=== PATIENT | female | born 1965 | race Caucasian/White ===

== ENCOUNTER 2020-12-10 12:49 | Emergency (ER) | payer OTHER ==
[~2020-12-10] VITALS: Ht 157.5 cm; Wt 40.8 kg
== END 2020-12-10 13:13 | disposition home or self-care (01) ==
LOC: ER 13:07
DX: L03.113 Cellulitis of right upper limb (principal); Z87.891 Personal history of nicotine dependence
CPT/HCPCS: 99283

== ENCOUNTER 2022-03-14 03:06 | Emergency (ER) | payer OTHER ==
[~2022-03-14] VITALS: Ht 157.5 cm; Wt 43.1 kg
[2022-03-14] MEDS ORDERED: ALBUTEROL/IPRATROPIUM 3 ML NEB NEB ONE (03:15)
[2022-03-14] MEDS ORDERED: METHYLPREDNISOLONE SOD SUCC 125 MG/2ML VIAL IM ONE (03:15)
== END 2022-03-14 04:07 | disposition home or self-care (01) ==
LOC: ER 03:09
DX: R05.9 Cough, unspecified (principal); J18.9 Pneumonia, unspecified organism; J98.01 Acute bronchospasm; R06.02 Shortness of breath; Z20.822 Contact with and (suspected) exposure to COVID-19; R94.31 Abnormal electrocardiogram [ECG] [EKG]
CPT/HCPCS: 71045; 93005; 94799; 99283; J2930; U0002

== ENCOUNTER 2022-03-16 14:37 | Inpatient (IN) | payer OTHER ==
[~2022-03-16] VITALS: Ht 157.5 cm; Wt 43.1 kg
[2022-03-16 15:26] LABS: BASOPHILS # (AUTO) 0.2 (0.0-0.1); BASOPHILS % 0.8 % (0.0-1.0); HEMATOCRIT 35.6 % (34.2-44.1); HEMOGLOBIN 11.4 g/dL (12.0-16.0); LYMPHOCYTES # (AUTO) 1.5 (1.0-3.2); LYMPHOCYTES % 6.6 % (18.0-39.1); MEAN CORPUSCULAR HEMOGLOBIN 23.7 pg (28-32); MEAN CORPUSCULAR VOLUME 73.9 fL (81-99); MONOCYTES # (AUTO) 1.7 (0.2-0.8); MONOCYTES % 7.1 % (4.4-11.3); NEUTROPHILS # (AUTO) 17.7 (2.1-6.9); NEUTROPHILS % 75.4 % (38.7-80.0); PLATELET COUNT 604 x10e3/uL (140-360); RED BLOOD COUNT 4.82 x10e6/uL (3.6-5.1); RED CELL DISTRIBUTION WIDTH 17.9 % (11.7-14.4)
[2022-03-16 15:47] LABS: ALBUMIN 1.7 g/dL (3.5-5.0); ALBUMIN/GLOBULIN RATIO 0.3 (0.8-2.0); ANION GAP 14.3 mmol/L (8-16); CALCIUM 7.9 mg/dL (8.4-10.2); CREATININE, SERUM 0.5 mg/dL (0.57-1.11); POTASSIUM 4.3 mmol/L (3.5-5.1)
[2022-03-16] MEDS ORDERED: KETOROLAC TROMETHAMINE 30 MG/ML VIAL IV ONE (16:10)
[2022-03-16 16:16] LABS: LYMPHOCYTES % (MANUAL) 5 % (19-48); METAMYELOCYTES % (MANUAL) 3 % (0-0); MONOCYTES % (MANUAL) 5 % (3.4-9.0); MYELOCYTES % (MANUAL) 2 % (0-0); NEUTROPHILS % (MANUAL) 84 % (40-74); PLATELET ESTIMATE MODERATELY INCREASED; PLATELET MORPHOLOGY COMMENT MODERATE LARGE; RBC MORPHOLOGY COMMENT NORMAL
[2022-03-16] MEDS ORDERED: IOPAMIDOL 370 MG/ML 100 ML INFUS..BTL INJ ONE (16:31)
[2022-03-16] MEDS ORDERED: ASPIRIN 81 MG CHEW TAB PO ONE (17:00)
[2022-03-16] MEDS: SODIUM CHLORIDE 0.9% 1000ML 1,000 ML IV SCH (17:00)
[2022-03-16] MEDS ORDERED: SODIUM CHLORIDE 0.9% 1000ML 1,000 ML IV SCH (17:00)
[2022-03-16 17:48] VITALS: BP 150/84
[2022-03-16 17:55] VITALS: BP 152/112
[2022-03-16] MEDS ORDERED: HYDRALAZINE HCL 20 MG/ML VIAL IV PRN (18:30)
[2022-03-16] MEDS ORDERED: POLYETHYLENE GLYCOL 3350 17 GM PACK PO PRN (18:30)
[2022-03-16] MEDS ORDERED: ACETAMINOPHEN 325 MG TAB PO PRN (18:30)
[2022-03-16] MEDS ORDERED: ONDANSETRON HCL INJ 2MG/ML 2ML 2 MG/ML VIAL IV PRN (18:30)
[2022-03-16] MEDS ORDERED: KETOROLAC TROMETHAMINE 10 MG TAB PO PRN (19:00)
[2022-03-16] MEDS ORDERED: MELATONIN 3 MG TAB PO PRN (19:00)
[2022-03-16 20:00] VITALS: BP 101/84
[2022-03-16] MEDS: ENOXAPARIN SOD INJ 60 MG/0.6 ML SYR SC SCH (20:36)
[2022-03-16] MEDS: TEMAZEPAM 7.5 MG CAP PO PRN (21:40)
[2022-03-16] MEDS: ACETAMINOPHEN/CODEINE 300MG - 30MG TAB PO PRN (21:40)
[2022-03-16 22:18] LABS: AMPHETAMINES SCREEN,URINE NEGATIVE (NEGATIVE); BENZODIAZEPINES SCREEN,URINE NEGATIVE (NEGATIVE); PHENCYCLIDINE SCREEN,URINE NEGATIVE (NEGATIVE)
[2022-03-16 22:20] LABS: CLARITY,URINE CLOUDY (CLEAR); COLOR,URINE YELLOW (YELLOW); LEUKOCYTE ESTERASE ,URINE NEGATIVE (NEGATIVE); NITRITE,URINE NEGATIVE (NEGATIVE)
[2022-03-16 22:21] LABS: KETONES,URINE NEGATIVE (NEGATIVE); PROTEIN,URINE DIPSTICK NEGATIVE (NEGATIVE); URINE UROBILINOGEN 0.2 mg/dL (0.2 - 1)
[2022-03-16 22:31] LABS: BACTERIA,URINE MANY /HPF; EPITHELIAL CELLS,URINE MODERATE /LPF; HYALINE CASTS 0-1 (0-1); TRICHOMONAS,URINE FEW
[2022-03-17] VITALS (7 sets, daily range): BP systolic 93–139; BP diastolic 54–93
[2022-03-17] MEDS: SODIUM CHLORIDE 0.9% 1000ML 1,000 ML IV SCH ×3 (01:15→17:10)
[2022-03-17] MEDS ORDERED: FAMOTIDINE 20 MG/2 ML VIAL IV STA (05:34)
[2022-03-17] MEDS: FAMOTIDINE 20 MG TAB PO SCH ×2 (05:36→17:10)
[2022-03-17] MEDS ORDERED: METOCLOPRAMIDE HCL 10 MG/2ML VIAL IV ONE (05:45)
[2022-03-17 06:44] LABS: BASOPHILS # (AUTO) 0.2 (0.0-0.1); BASOPHILS % 0.7 % (0.0-1.0); EOSINOPHILS # (AUTO) 0.1 (0.0-0.4); EOSINOPHILS % 0.2 % (0.0-6.0); HEMATOCRIT 35.6 % (34.2-44.1); HEMOGLOBIN 11.2 g/dL (12.0-16.0); LYMPHOCYTES # (AUTO) 2.8 (1.0-3.2); LYMPHOCYTES % 12.4 % (18.0-39.1); MEAN CORPUSCULAR HEMOGLOBIN 23.2 pg (28-32); MEAN CORPUSCULAR HGB CONC 31.5 g/dL (31-35); MEAN CORPUSCULAR VOLUME 73.7 fL (81-99); MONOCYTES # (AUTO) 1.5 (0.2-0.8); MONOCYTES % 6.8 % (4.4-11.3); NEUTROPHILS # (AUTO) 15.8 (2.1-6.9); NEUTROPHILS % 69.9 % (38.7-80.0); PLATELET COUNT 474 x10e3/uL (140-360); RED BLOOD COUNT 4.83 x10e6/uL (3.6-5.1); RED CELL DISTRIBUTION WIDTH 17.8 % (11.7-14.4)
[2022-03-17 07:39] LABS: CALCIUM 8.2 mg/dL (8.4-10.2); CREATININE, SERUM 0.48 mg/dL (0.57-1.11)
[2022-03-17 08:13] LABS: CREATINE KINASE < 7 IU/L (29-168)
[2022-03-17] MEDS: ENOXAPARIN SOD INJ 60 MG/0.6 ML SYR SC SCH ×2 (08:20→20:16)
[2022-03-17 08:38] LABS: CHOL/HDL RATIO 10.3 (3.0-3.6); MAGNESIUM 1.5 MG/DL (1.3-2.1); PHOSPHORUS 2.8 MG/DL (2.3-4.7)
[2022-03-17] MEDS ORDERED: MAGNESIUM SULFATE 2GM/50ML 50 ML IV ONE ×2 (08:45→13:30)
[2022-03-17 08:59] LABS: THYROID STIMULATING HORMONE 2.769 uIU/mL (0.350-4.940)
[2022-03-17] MEDS: DOCUSATE SODIUM 100 MG CAP PO SCH ×2 (09:15→17:00)
[2022-03-17 10:41] LABS: BAND NEUTROPHILS % (MANUAL) 1 %; EOSINOPHILS % (MANUAL) 1 % (0-7); LYMPHOCYTES % (MANUAL) 7 % (19-48); METAMYELOCYTES % (MANUAL) 2 % (0-0); MONOCYTES % (MANUAL) 8 % (3.4-9.0); MYELOCYTES % (MANUAL) 3 % (0-0); NEUTROPHILS % (MANUAL) 78 % (40-74); PLATELET ESTIMATE ADEQUATE
[2022-03-17 10:42] LABS: PLATELET MORPHOLOGY COMMENT NORMAL; RBC MORPHOLOGY COMMENT NORMAL
[2022-03-17] MEDS ORDERED: ALBUTEROL SULFATE HFA 8GM INHALATION AEROSOL INH PRN (12:45)
[2022-03-17] MEDS: HYDROCODONE/APAP 7.5MG-325MG 1 EA TAB PO PRN (14:00)
[2022-03-17 14:07] LABS: CREATINE KINASE < 7 IU/L (29-168)
[2022-03-17] MEDS: TEMAZEPAM 7.5 MG CAP PO PRN (20:16)
[2022-03-18] VITALS: BP 119/57
[2022-03-18] MEDS: SODIUM CHLORIDE 0.9% 1000ML 1,000 ML IV SCH ×2 (00:38→10:00)
[2022-03-18 04:00] VITALS: BP 135/72
[2022-03-18 05:33] LABS: BASOPHILS # (AUTO) 0.1 (0.0-0.1); BASOPHILS % 0.4 % (0.0-1.0); EOSINOPHILS # (AUTO) 0.1 (0.0-0.4); EOSINOPHILS % 0.3 % (0.0-6.0); HEMATOCRIT 33.2 % (34.2-44.1); HEMOGLOBIN 10.6 g/dL (12.0-16.0); LYMPHOCYTES # (AUTO) 2.7 (1.0-3.2); LYMPHOCYTES % 9.9 % (18.0-39.1); MEAN CORPUSCULAR HEMOGLOBIN 23.6 pg (28-32); MEAN CORPUSCULAR HGB CONC 31.9 g/dL (31-35); MEAN CORPUSCULAR VOLUME 73.8 fL (81-99); MONOCYTES # (AUTO) 2.1 (0.2-0.8); MONOCYTES % 7.8 % (4.4-11.3); NEUTROPHILS # (AUTO) 19.8 (2.1-6.9); NEUTROPHILS % 73.2 % (38.7-80.0); PLATELET COUNT 433 x10e3/uL (140-360); RED CELL DISTRIBUTION WIDTH 17.8 % (11.7-14.4)
[2022-03-18 05:57] LABS: ALBUMIN 1.7 g/dL (3.5-5.0); ALBUMIN/GLOBULIN RATIO 0.4 (0.8-2.0); ANION GAP 12.2 mmol/L (8-16); CALCIUM 7.5 mg/dL (8.4-10.2); CREATININE, SERUM 0.45 mg/dL (0.57-1.11); POTASSIUM 4.2 mmol/L (3.5-5.1)
[2022-03-18] MEDS: FAMOTIDINE 20 MG TAB PO SCH ×2 (06:13→17:00)
[2022-03-18 06:24] LABS: CREATINE KINASE < 7 IU/L (29-168)
[2022-03-18] MEDS: HYDROCODONE/APAP 7.5MG-325MG 1 EA TAB PO PRN ×3 (06:26→18:35)
[2022-03-18 08:24] VITALS: BP 135/71
[2022-03-18] MEDS: DOCUSATE SODIUM 100 MG CAP PO SCH ×2 (09:00→17:00)
[2022-03-18] MEDS: ENOXAPARIN SOD INJ 60 MG/0.6 ML SYR SC SCH ×2 (09:30→20:17)
[2022-03-18 09:33] LABS: BAND NEUTROPHILS % (MANUAL) 2 %; LYMPHOCYTES % (MANUAL) 10 % (19-48); METAMYELOCYTES % (MANUAL) 3 % (0-0); MONOCYTES % (MANUAL) 7 % (3.4-9.0); MYELOCYTES % (MANUAL) 1 % (0-0); NEUTROPHILS % (MANUAL) 77 % (40-74)
[2022-03-18 09:34] LABS: ANISOCYTOSIS MODERATE; HYPOCHROMASIA MODERATE; MICROCYTOSIS MODERATE; PLATELET ESTIMATE ADEQUATE; PLATELET MORPHOLOGY COMMENT NORMAL; RBC MORPHOLOGY COMMENT ABNORMAL
[2022-03-18] MEDS: CLOPIDOGREL BISULFATE 75 MG TAB PO SCH (09:45)
[2022-03-18] MEDS: ACETAMINOPHEN/CODEINE 300MG - 30MG TAB PO PRN ×2 (09:50→16:45)
[2022-03-18 20:00] VITALS: BP 100/61
[2022-03-18 20:45] VITALS: BP 100/61
[2022-03-19] VITALS (9 sets, daily range): BP systolic 84–126; BP diastolic 56–94
[2022-03-19 05:00] LABS: BASOPHILS # (AUTO) 0.1 (0.0-0.1); BASOPHILS % 0.3 % (0.0-1.0); EOSINOPHILS # (AUTO) 0.1 (0.0-0.4); EOSINOPHILS % 0.5 % (0.0-6.0); HEMATOCRIT 30.3 % (34.2-44.1); HEMOGLOBIN 9.5 g/dL (12.0-16.0); LYMPHOCYTES # (AUTO) 2.7 (1.0-3.2); MEAN CORPUSCULAR HEMOGLOBIN 23.6 pg (28-32); MEAN CORPUSCULAR HGB CONC 31.4 g/dL (31-35); MEAN CORPUSCULAR VOLUME 75.2 fL (81-99); MONOCYTES # (AUTO) 1.6 (0.2-0.8); MONOCYTES % 6.5 % (4.4-11.3); NEUTROPHILS # (AUTO) 18.3 (2.1-6.9); NEUTROPHILS % 74.5 % (38.7-80.0); PLATELET COUNT 485 x10e3/uL (140-360); RED BLOOD COUNT 4.03 x10e6/uL (3.6-5.1); RED CELL DISTRIBUTION WIDTH 18.2 % (11.7-14.4)
[2022-03-19 05:21] LABS: ALBUMIN 1.8 g/dL (3.5-5.0); ALBUMIN/GLOBULIN RATIO 0.4 (0.8-2.0); ANION GAP 9.8 mmol/L (8-16); CALCIUM 7.9 mg/dL (8.4-10.2); CREATININE, SERUM 0.45 mg/dL (0.57-1.11); POTASSIUM 4.8 mmol/L (3.5-5.1)
[2022-03-19] MEDS: HYDROCODONE/APAP 7.5MG-325MG 1 EA TAB PO PRN ×3 (06:29→17:33)
[2022-03-19] MEDS: ENOXAPARIN SOD INJ 60 MG/0.6 ML SYR SC SCH ×2 (09:21→21:29)
[2022-03-19] MEDS: DOCUSATE SODIUM 100 MG CAP PO SCH ×2 (09:21→17:21)
[2022-03-19] MEDS: CLOPIDOGREL BISULFATE 75 MG TAB PO SCH (09:21)
[2022-03-19] MEDS: FAMOTIDINE 20 MG TAB PO SCH ×2 (09:21→17:21)
[2022-03-19 10:42] LABS: LYMPHOCYTES % (MANUAL) 7 % (19-48); METAMYELOCYTES % (MANUAL) 2 % (0-0); MONOCYTES % (MANUAL) 7 % (3.4-9.0); NEUTROPHILS % (MANUAL) 84 % (40-74); PLATELET ESTIMATE ADEQUATE; PLATELET MORPHOLOGY COMMENT FEW GIANT
[2022-03-19 10:43] LABS: RBC MORPHOLOGY COMMENT NORMAL
[2022-03-19] MEDS ORDERED: MAGNESIUM SULFATE 2GM/50ML 50 ML IV ONE (20:30)
[2022-03-19] MEDS ORDERED: MAGNESIUM SULF 1GRAM/DEXTROSE 100 ML IV ONE (22:30)
[2022-03-20] VITALS (8 sets, daily range): BP systolic 93–107; BP diastolic 56–73
[2022-03-20 05:40] LABS: BASOPHILS # (AUTO) 0.1 (0.0-0.1); BASOPHILS % 0.3 % (0.0-1.0); EOSINOPHILS # (AUTO) 0.1 (0.0-0.4); EOSINOPHILS % 0.6 % (0.0-6.0); HEMATOCRIT 29.8 % (34.2-44.1); HEMOGLOBIN 9.4 g/dL (12.0-16.0); LYMPHOCYTES # (AUTO) 2.4 (1.0-3.2); MEAN CORPUSCULAR HEMOGLOBIN 23.7 pg (28-32); MEAN CORPUSCULAR HGB CONC 31.5 g/dL (31-35); MEAN CORPUSCULAR VOLUME 75.3 fL (81-99); MONOCYTES # (AUTO) 1.3 (0.2-0.8); MONOCYTES % 7.8 % (4.4-11.3); NEUTROPHILS # (AUTO) 11.4 (2.1-6.9); NEUTROPHILS % 70.6 % (38.7-80.0); PLATELET COUNT 561 x10e3/uL (140-360); RED BLOOD COUNT 3.96 x10e6/uL (3.6-5.1); RED CELL DISTRIBUTION WIDTH 18.3 % (11.7-14.4)
[2022-03-20] MEDS: HYDROCODONE/APAP 7.5MG-325MG 1 EA TAB PO PRN ×2 (06:04→18:03)
[2022-03-20 06:06] LABS: PHOSPHORUS 3.3 MG/DL (2.3-4.7)
[2022-03-20] MEDS: FAMOTIDINE 20 MG TAB PO SCH ×2 (08:50→18:00)
[2022-03-20] MEDS: ENOXAPARIN SOD INJ 60 MG/0.6 ML SYR SC SCH ×2 (08:50→20:13)
[2022-03-20] MEDS: CLOPIDOGREL BISULFATE 75 MG TAB PO SCH (09:47)
[2022-03-20] MEDS: DOCUSATE SODIUM 100 MG CAP PO SCH ×2 (09:47→18:00)
[2022-03-20] MEDS: TEMAZEPAM 15 MG CAP PO PRN (20:32)
[2022-03-21 04:00] VITALS: BP 99/70
[2022-03-21] MEDS: HYDROCODONE/APAP 7.5MG-325MG 1 EA TAB PO PRN ×3 (04:30→16:56)
[2022-03-21 07:28] LABS: BASOPHILS # (AUTO) 0.1 (0.0-0.1); BASOPHILS % 0.3 % (0.0-1.0); EOSINOPHILS # (AUTO) 0.2 (0.0-0.4); EOSINOPHILS % 1.1 % (0.0-6.0); HEMATOCRIT 29.2 % (34.2-44.1); LYMPHOCYTES # (AUTO) 2.1 (1.0-3.2); LYMPHOCYTES % 14.3 % (18.0-39.1); MEAN CORPUSCULAR HEMOGLOBIN 23.7 pg (28-32); MEAN CORPUSCULAR HGB CONC 30.8 g/dL (31-35); MONOCYTES # (AUTO) 1.1 (0.2-0.8); MONOCYTES % 7.4 % (4.4-11.3); NEUTROPHILS # (AUTO) 10.6 (2.1-6.9); NEUTROPHILS % 73.6 % (38.7-80.0); PLATELET COUNT 735 x10e3/uL (140-360); RED BLOOD COUNT 3.79 x10e6/uL (3.6-5.1); RED CELL DISTRIBUTION WIDTH 18.7 % (11.7-14.4)
[2022-03-21 07:46] LABS: ALBUMIN 2.2 g/dL (3.5-5.0); ALBUMIN/GLOBULIN RATIO 0.5 (0.8-2.0); ANION GAP 14.5 mmol/L (8-16); CALCIUM 8.3 mg/dL (8.4-10.2); CREATININE, SERUM 0.48 mg/dL (0.57-1.11); POTASSIUM 4.5 mmol/L (3.5-5.1)
[2022-03-21 08:29] VITALS: BP 107/69
[2022-03-21] MEDS ORDERED: SPIRONOLACTONE 25 MG TAB PO SCH (09:00)
[2022-03-21] MEDS ORDERED: PREDNISONE 20 MG TAB PO SCH (09:00)
[2022-03-21] MEDS: DOCUSATE SODIUM 100 MG CAP PO SCH ×2 (09:34→16:56)
[2022-03-21] MEDS: FAMOTIDINE 20 MG TAB PO SCH ×2 (09:34→16:56)
[2022-03-21] MEDS: CLOPIDOGREL BISULFATE 75 MG TAB PO SCH (09:34)
[2022-03-21] MEDS: ENOXAPARIN SOD INJ 60 MG/0.6 ML SYR SC SCH (09:34)
[2022-03-21 11:58] VITALS: BP 109/63
[2022-03-21] MEDS ORDERED: ONDANSETRON HCL 4 MG ORAL DISINTEGRATING TAB PO PRN (12:30)
[2022-03-21] MEDS ORDERED: AZITHROMYCIN 250 MG TAB PO SCH (15:00)
[2022-03-21 16:00] VITALS: BP 109/62
[2022-03-21] MEDS: APIXABAN 5 MG TABLET PO SCH (16:56)
[2022-03-21 20:00] VITALS: BP 110/70
[2022-03-21] MEDS: TEMAZEPAM 15 MG CAP PO PRN (21:20)
[2022-03-22] VITALS: BP 93/64
[2022-03-22 04:00] VITALS: BP 102/72
[2022-03-22] MEDS: HYDROCODONE/APAP 7.5MG-325MG 1 EA TAB PO PRN ×2 (04:19→10:19)
[2022-03-22 07:00] LABS: BASOPHILS % 0.3 % (0.0-1.0); EOSINOPHILS # (AUTO) 0.1 (0.0-0.4); EOSINOPHILS % 0.7 % (0.0-6.0); HEMATOCRIT 27.6 % (34.2-44.1); HEMOGLOBIN 8.5 g/dL (12.0-16.0); LYMPHOCYTES % 15.9 % (18.0-39.1); MEAN CORPUSCULAR HEMOGLOBIN 23.6 pg (28-32); MEAN CORPUSCULAR HGB CONC 30.8 g/dL (31-35); MEAN CORPUSCULAR VOLUME 76.7 fL (81-99); MONOCYTES # (AUTO) 1.1 (0.2-0.8); NEUTROPHILS # (AUTO) 9.1 (2.1-6.9); NEUTROPHILS % 72.3 % (38.7-80.0); PLATELET COUNT 813 x10e3/uL (140-360); RED CELL DISTRIBUTION WIDTH 19.1 % (11.7-14.4)
[2022-03-22 07:22] LABS: ANION GAP 14.5 mmol/L (8-16); CALCIUM 8.8 mg/dL (8.4-10.2); CREATININE, SERUM 0.45 mg/dL (0.57-1.11); POTASSIUM 4.5 mmol/L (3.5-5.1)
[2022-03-22] MEDS: FAMOTIDINE 20 MG TAB PO SCH (08:00)
[2022-03-22] MEDS: ACETAMINOPHEN/CODEINE 300MG - 30MG TAB PO PRN (08:25)
[2022-03-22 09:00] VITALS: BP 102/72
[2022-03-22] MEDS ORDERED: FERROUS SULFATE 325 MG TAB PO SCH (09:00)
[2022-03-22] MEDS: DOCUSATE SODIUM 100 MG CAP PO SCH (09:00)
[2022-03-22 09:22] VITALS: BP 108/73
[2022-03-22] MEDS: APIXABAN 5 MG TABLET PO SCH (10:00)
[2022-03-22] MEDS: CLOPIDOGREL BISULFATE 75 MG TAB PO SCH (10:00)
[2022-03-22 12:00] VITALS: BP 132/70
[2022-03-22] MEDS ORDERED: AZITHROMYCIN250 MG PO (12:20)
[2022-03-22] MEDS ORDERED: FAMOTIDINE20 MG PO (12:20)
[2022-03-22] MEDS ORDERED: MELATONIN3 MG PO (12:20)
[2022-03-22] MEDS ORDERED: PLAVIX75 MG PO (12:20)
[2022-03-22] MEDS ORDERED: Ferrous Sulfate PO (12:20)
[2022-03-22] MEDS ORDERED: ELIQUIS5 MG PO (12:20)
[2022-03-22] MEDS ORDERED: Docusate Sodium PO (12:20)
[2022-03-22] MEDS ORDERED: ONDANSETRON ODT4 MG PO (12:20)
[2022-03-22] MEDS ORDERED: VENTOLIN HFA18 GM INH (12:20)
[2022-03-22] MEDS ORDERED: MIRALAX17 GM PO (12:20)
== END 2022-03-22 13:22 | disposition home or self-care (01) | DRG 871 ==
LOC: ER 14:50 → ERHOLD 16:50 → MED/SURG2 17:33 → OBSVTOIN 03-17 15:15
PROVIDERS: ADMIT Internal Medicine; ATTEND Internal Medicine
DX: A41.9 Sepsis, unspecified organism (principal); J18.9 Pneumonia, unspecified organism; I74.09 Other arterial embolism and thrombosis of abdominal aorta; E44.0 Moderate protein-calorie malnutrition; Z68.1 Body mass index [BMI] 19.9 or less, adult; R64 Cachexia; E87.1 Hypo-osmolality and hyponatremia; K56.1 Intussusception; D73.5 Infarction of spleen; J45.909 Unspecified asthma, uncomplicated; K76.89 Other specified diseases of liver; R16.2 Hepatomegaly with splenomegaly, not elsewhere classified; R74.01 Elevation of levels of liver transaminase levels; E83.42 Hypomagnesemia; G47.00 Insomnia, unspecified; F15.90 Other stimulant use, unspecified, uncomplicated; J43.9 Emphysema, unspecified; F17.210 Nicotine dependence, cigarettes, uncomplicated; D75.839 Thrombocytosis, unspecified; R00.1 Bradycardia, unspecified; I77.3 Arterial fibromuscular dysplasia; Z88.0 Allergy status to penicillin; Z20.822 Contact with and (suspected) exposure to COVID-19
CPT/HCPCS: 36415; 71046; 71250; 74174; 76705; 80048; 80053; 80061; 80307; 81001; 82140; 82270; 82550; 82553; 82728; 83036; 83605; 83690; 83735; 84100; 84443; 84484; 85025; 87040; 87071; 87205; 93005; 93306; 94799; 96360; 96361; 97139; 99251; 99284; G0378; J0456; J0696; J1650; J1885; J2405; J2765; J3475; J7030; J7050; Q9967

== ENCOUNTER 2025-03-15 13:25 | Inpatient (IN) | payer OTHER ==
[2025-03-15] VITALS (9 sets, daily range): BP systolic 97–111; BP diastolic 64–80; PULSE 90–106; RESP 16–28; TEMP 97.6–98.2; O2SAT 93–99
[~2025-03-15] VITALS: Ht 157.5 cm; Wt 38.1 kg
[~2025-03-15 13:25] MED LIST: AZITHROMYCIN250 MG PO; CARVEDILOL12.5 MG PO; CEFPODOXIME PR200 MG PO; DOXYCYCLINE HY100 MG PO; Docusate Sodium PO; ECOTRIN81 MG PO; ELIQUIS5 MG PO; FAMOTIDINE20 MG PO; FLOMAX0.4 MG PO; Ferrous Sulfate PO; GLIMEPIRIDE2 MG PO; LEVOCETIRIZINE D5 MG PO; LEVOTHYROXINE50 MCG PO; LISINOPRIL10 MG PO; MELATONIN3 MG PO; MELOXICAM7.5 MG PO; METFORMIN HCL500 M2 PO; MIRALAX17 GM PO; MONTELUKAST SOD10 MG PO; ONDANSETRON ODT4 MG PO; PLAVIX75 MG PO; SIMVASTATIN80 MG PO; SYMBICORT 80-10.2 GM INH; TRICOR145 MG PO; VENTOLIN HFA18 GM INH
[2025-03-15 14:28] LABS: BASOPHILS # (AUTO) 0.1 (0.0-0.1); BASOPHILS % 0.6 % (0.0-1.0); EOSINOPHILS % 0.1 % (0.0-6.0); HEMATOCRIT 45.3 % (34.2-44.1); HEMOGLOBIN 14.8 g/dL (12.0-16.0); LYMPHOCYTES % 6.4 % (18.0-39.1); MEAN CORPUSCULAR HGB CONC 32.7 g/dL (31-35); MEAN CORPUSCULAR VOLUME 76.6 fL (81-99); MONOCYTES # (AUTO) 1.4 (0.2-0.8); MONOCYTES % 8.8 % (4.4-11.3); NEUTROPHILS # (AUTO) 12.8 (2.1-6.9); NEUTROPHILS % 83.3 % (38.7-80.0); PLATELET COUNT 429 x10e3/uL (140-360); RED BLOOD COUNT 5.91 x10e6/uL (3.6-5.1); RED CELL DISTRIBUTION WIDTH 17.2 % (11.7-14.4); WHITE BLOOD COUNT 15.37 x10e3/uL (4.8-10.8)
[2025-03-15] MEDS: ALBUTEROL/IPRATROPIUM 3 ML NEB NEB ONE (14:36)
[2025-03-15 14:44] LABS: INR 0.99
[2025-03-15] MEDS ORDERED: SODIUM CHLORIDE 0.9% 1000ML 1,000 ML ONE (14:44)
[2025-03-15 14:45] LABS: PARTIAL THROMBOPLASTIN TIME 26.4 seconds (23.8-35.5)
[2025-03-15 14:56] LABS: ALBUMIN 2.7 g/dL (3.5-5.0); ALBUMIN/GLOBULIN RATIO 0.5 (0.8-2.0); ANION GAP 21.6 mmol/L (8-16); BILIRUBIN,TOTAL 0.4 mg/dL (0.2-1.2); CALCIUM 9.7 mg/dL (8.4-10.2); CREATININE, SERUM 0.93 mg/dL (0.57-1.11); TOTAL PROTEIN 8.1 g/dL (6.5-8.1)
[2025-03-15 14:59] LABS: POTASSIUM 2.6 mmol/L (3.5-5.1)
[2025-03-15] MEDS: SODIUM CHLORIDE 0.9% IV SCH (15:02)
[2025-03-15 15:05] LABS: BILIRUBIN,URINE SMALL (NEGATIVE); CLARITY,URINE SL CLOUDY (CLEAR); COLOR,URINE YELLOW (YELLOW); GLUCOSE, URINE 1+ (NEGATIVE); KETONES,URINE NEGATIVE (NEGATIVE); LEUKOCYTE ESTERASE ,URINE NEGATIVE (NEGATIVE); NITRITE,URINE NEGATIVE (NEGATIVE); PH,URINE 5.5 (5 - 7); PROTEIN,URINE DIPSTICK 2+ (NEGATIVE); URINE UROBILINOGEN 2 mg/dL (0.2 - 1)
[2025-03-15 15:08] LABS: AMPHETAMINES SCREEN,URINE NEGATIVE (NEGATIVE); BENZODIAZEPINES SCREEN,URINE NEGATIVE (NEGATIVE); CANNABINOIDS SCREEN,URINE NEGATIVE (NEGATIVE); COCAINE SCREEN,URINE NEGATIVE (NEGATIVE); METHADONE SCREEN, URINE NEGATIVE (NEGATIVE); OPIATES SCREEN,URINE NEGATIVE (NEGATIVE); PHENCYCLIDINE SCREEN,URINE NEGATIVE (NEGATIVE)
[2025-03-15 15:17] LABS: AMORPHOUS SEDIMENT,URINE MODERATE; BACTERIA,URINE MODERATE /HPF; EPITHELIAL CELLS,URINE FEW /LPF; TRANSITIONAL EPI CELLS,URINE MODERATE
[2025-03-15] MEDS ORDERED: POTASSIUM CHLORIDE 20 MEQ TAB CR PO STA (15:49)
[2025-03-15] MEDS: HYDROCODONE/APAP 5MG-325MG TAB PO ONE (16:18)
[2025-03-15] MEDS: KCL 20 MEQ PACKET/ ORAL SOLN PO STA (16:18)
[2025-03-15] MEDS: POTASSIUM CHLORIDE 10MEQ/100ML 100 ML IV SCH (16:19)
[2025-03-15] MEDS: SODIUM CHLORIDE 0.9% 1000ML 1,000 ML IV SCH (16:30)
[2025-03-15 17:06] LABS: TROPONIN I 0.009 ng/mL (0-0.300)
[2025-03-15 18:18] LABS: LYMPHOCYTES % (MANUAL) 8 % (19-48); MONOCYTES % (MANUAL) 13 % (3.4-9.0); NEUTROPHILS % (MANUAL) 79 % (40-74); PLATELET ESTIMATE SLIGHTLY INCREASED; PLATELET MORPHOLOGY COMMENT FEW GIANT; RBC MORPHOLOGY COMMENT NORMAL
[2025-03-15] MEDS: ALBUTEROL/IPRATROPIUM 3 ML NEB NEB SCH (18:59)
[2025-03-15] MEDS: BUDESONIDE/FORMOTEROL 80/4.5 MCG INHALER IH SCH (19:00)
[2025-03-15] MEDS: METHYLPREDNISOLONE SOD SUCC 40 MG/ML VIAL 1ML IV SCH (22:29)
[2025-03-16] VITALS (43 sets, daily range): BP systolic 100–163; BP diastolic 60–144; PULSE 90–117; RESP 16–37; TEMP 96.9–98.8; O2SAT 92–100
[2025-03-16 01:20] LABS: TROPONIN I 0.007 ng/mL (0-0.300)
[2025-03-16 07:25] LABS: BASOPHILS # (AUTO) 0.1 (0.0-0.1); BASOPHILS % 0.4 % (0.0-1.0); HEMATOCRIT 36.5 % (34.2-44.1); HEMOGLOBIN 11.9 g/dL (12.0-16.0); LYMPHOCYTES # (AUTO) 0.7 (1.0-3.2); LYMPHOCYTES % 4.2 % (18.0-39.1); MEAN CORPUSCULAR HGB CONC 32.6 g/dL (31-35); MEAN CORPUSCULAR VOLUME 76.7 fL (81-99); MONOCYTES # (AUTO) 0.5 (0.2-0.8); MONOCYTES % 3.4 % (4.4-11.3); NEUTROPHILS # (AUTO) 14.4 (2.1-6.9); NEUTROPHILS % 91.1 % (38.7-80.0); PLATELET COUNT 438 x10e3/uL (140-360); RED BLOOD COUNT 4.76 x10e6/uL (3.6-5.1); RED CELL DISTRIBUTION WIDTH 17.2 % (11.7-14.4); WHITE BLOOD COUNT 15.81 x10e3/uL (4.8-10.8)
[2025-03-16 07:46] LABS: ALBUMIN 2.3 g/dL (3.5-5.0); ALBUMIN/GLOBULIN RATIO 0.5 (0.8-2.0); ANION GAP 15.7 mmol/L (8-16); BILIRUBIN,TOTAL 0.2 mg/dL (0.2-1.2); CALCIUM 8.8 mg/dL (8.4-10.2); CREATININE, SERUM 0.61 mg/dL (0.57-1.11); POTASSIUM 3.7 mmol/L (3.5-5.1); TOTAL PROTEIN 6.8 g/dL (6.5-8.1)
[2025-03-16 08:05] LABS: TROPONIN I 0.01 ng/mL (0-0.300)
[2025-03-16] MEDS: ACETAMINOPHEN 325 MG TAB PO PRN (08:12)
[2025-03-16] MEDS: METHYLPREDNISOLONE SOD SUCC 40 MG/ML VIAL 1ML IV SCH (09:00)
[2025-03-16] MEDS: HYDROCODONE/APAP 5MG-325MG TAB PO PRN (09:07)
[2025-03-16] MEDS ORDERED: MELATONIN 3 MG TAB PO PRN (13:45)
[2025-03-16] MEDS: APIXABAN 5 MG TABLET PO SCH (16:10)
[2025-03-16] MEDS: FAMOTIDINE 20 MG TAB PO SCH (16:10)
[2025-03-16] MEDS: CLONAZEPAM 0.5 MG TAB PO PRN (20:10)
[2025-03-16] MEDS: ZOLPIDEM TARTRATE 5 MG TAB PO PRN (20:13)
[2025-03-16] MEDS ORDERED: CLONAZEPAM 1 MG TAB PO PRN (21:00)
[2025-03-17] VITALS (39 sets, daily range): BP systolic 102–138; BP diastolic 66–107; PULSE 50–112; RESP 15–32; TEMP 97.1–98.3; O2SAT 91–100
[2025-03-17 07:15] LABS: BASOPHILS # (AUTO) 0.1 (0.0-0.1); BASOPHILS % 0.4 % (0.0-1.0); HEMATOCRIT 35.5 % (34.2-44.1); HEMOGLOBIN 11.1 g/dL (12.0-16.0); LYMPHOCYTES # (AUTO) 1.2 (1.0-3.2); LYMPHOCYTES % 8.6 % (18.0-39.1); MEAN CORPUSCULAR HEMOGLOBIN 24.9 pg (28-32); MEAN CORPUSCULAR HGB CONC 31.3 g/dL (31-35); MEAN CORPUSCULAR VOLUME 79.6 fL (81-99); MONOCYTES # (AUTO) 1.2 (0.2-0.8); MONOCYTES % 8.9 % (4.4-11.3); NEUTROPHILS # (AUTO) 10.8 (2.1-6.9); NEUTROPHILS % 80.5 % (38.7-80.0); PLATELET COUNT 420 x10e3/uL (140-360); RED BLOOD COUNT 4.46 x10e6/uL (3.6-5.1); RED CELL DISTRIBUTION WIDTH 17.4 % (11.7-14.4); WHITE BLOOD COUNT 13.42 x10e3/uL (4.8-10.8)
[2025-03-17 07:52] LABS: ALBUMIN 2.3 g/dL (3.5-5.0); ALBUMIN/GLOBULIN RATIO 0.5 (0.8-2.0); ANION GAP 13.5 mmol/L (8-16); BILIRUBIN,TOTAL 0.1 mg/dL (0.2-1.2); CALCIUM 9.1 mg/dL (8.4-10.2); CREATININE, SERUM 0.53 mg/dL (0.57-1.11); POTASSIUM 4.5 mmol/L (3.5-5.1); TOTAL PROTEIN 6.5 g/dL (6.5-8.1)
[2025-03-17] MEDS: MELOXICAM 7.5 MG TAB PO SCH (09:01)
[2025-03-17] MEDS: CLOPIDOGREL BISULFATE 75 MG TAB PO SCH (09:01)
[2025-03-18] VITALS (24 sets, daily range): BP systolic 100–150; BP diastolic 63–88; PULSE 83–108; RESP 19–37; TEMP 97.9–98.7; O2SAT 90–100
[2025-03-18] MEDS: BENZONATATE 100 MG CAP PO PRN (15:15)
[2025-03-18] MEDS ORDERED: ONDANSETRON HCL INJ 2MG/ML 2ML 2 MG/ML VIAL ONE (18:10)
[2025-03-18] MEDS: ONDANSETRON HCL INJ 2MG/ML 2ML 2 MG/ML VIAL IV PRN (18:13)
[2025-03-19] VITALS (33 sets, daily range): BP systolic 92–123; BP diastolic 60–92; PULSE 68–108; RESP 18–31; TEMP 98–98.5; O2SAT 88–100
[2025-03-20] VITALS (26 sets, daily range): BP systolic 66–147; BP diastolic 55–96; PULSE 51–106; RESP 16–31; TEMP 97.2–99.1; O2SAT 82–100
[2025-03-20 06:54] LABS: BASOPHILS # (AUTO) 0.1 (0.0-0.1); BASOPHILS % 0.6 % (0.0-1.0); EOSINOPHILS # (AUTO) 0.3 (0.0-0.4); EOSINOPHILS % 1.2 % (0.0-6.0); LYMPHOCYTES # (AUTO) 2.4 (1.0-3.2); LYMPHOCYTES % 10.8 % (18.0-39.1); MEAN CORPUSCULAR HEMOGLOBIN 24.7 pg (28-32); MEAN CORPUSCULAR VOLUME 79.8 fL (81-99); MONOCYTES # (AUTO) 1.5 (0.2-0.8); MONOCYTES % 6.4 % (4.4-11.3); NEUTROPHILS # (AUTO) 16.3 (2.1-6.9); NEUTROPHILS % 72.3 % (38.7-80.0); PLATELET COUNT 572 x10e3/uL (140-360); RED BLOOD COUNT 5.26 x10e6/uL (3.6-5.1); RED CELL DISTRIBUTION WIDTH 17.6 % (11.7-14.4); WHITE BLOOD COUNT 22.49 x10e3/uL (4.8-10.8)
[2025-03-20 08:27] LABS: ANION GAP 14.2 mmol/L (8-16); CALCIUM 9.6 mg/dL (8.4-10.2); CREATININE, SERUM 0.49 mg/dL (0.57-1.11); MAGNESIUM 1.6 MG/DL (1.3-2.1); PHOSPHORUS 3.9 MG/DL (2.3-4.7)
[2025-03-20 08:32] LABS: POTASSIUM 5.2 mmol/L (3.5-5.1)
[2025-03-20] MEDS: SODIUM CHLORIDE 0.9% 1000ML 1,000 ML IV ONE (09:17)
[2025-03-20 09:38] LABS: LYMPHOCYTES % (MANUAL) 13 % (19-48); MONOCYTES % (MANUAL) 9 % (3.4-9.0); NEUTROPHILS % (MANUAL) 78 % (40-74)
[2025-03-20 09:40] LABS: PLATELET ESTIMATE SLIGHTLY INCREASED; TOXIC GRANULATION SLIGHT
[2025-03-20 09:43] LABS: PLATELET MORPHOLOGY COMMENT FEW LARGE
[2025-03-21] VITALS (11 sets, daily range): BP systolic 103–133; BP diastolic 65–98; PULSE 72–108; RESP 16–20; TEMP 97.1–98.2; O2SAT 91–97
[2025-03-21 06:06] LABS: BASOPHILS # (AUTO) 0.1 (0.0-0.1); BASOPHILS % 0.5 % (0.0-1.0); EOSINOPHILS # (AUTO) 0.3 (0.0-0.4); EOSINOPHILS % 1.7 % (0.0-6.0); HEMATOCRIT 38.1 % (34.2-44.1); LYMPHOCYTES # (AUTO) 2.6 (1.0-3.2); LYMPHOCYTES % 13.6 % (18.0-39.1); MEAN CORPUSCULAR HEMOGLOBIN 24.8 pg (28-32); MEAN CORPUSCULAR HGB CONC 31.5 g/dL (31-35); MEAN CORPUSCULAR VOLUME 78.7 fL (81-99); MONOCYTES # (AUTO) 1.3 (0.2-0.8); MONOCYTES % 6.6 % (4.4-11.3); NEUTROPHILS % 68.3 % (38.7-80.0); PLATELET COUNT 618 x10e3/uL (140-360); RED BLOOD COUNT 4.84 x10e6/uL (3.6-5.1); RED CELL DISTRIBUTION WIDTH 17.5 % (11.7-14.4); WHITE BLOOD COUNT 19.04 x10e3/uL (4.8-10.8)
[2025-03-21 06:35] LABS: ALBUMIN 2.7 g/dL (3.5-5.0); ALBUMIN/GLOBULIN RATIO 0.6 (0.8-2.0); ANION GAP 14.9 mmol/L (8-16); BILIRUBIN,TOTAL 0.2 mg/dL (0.2-1.2); CALCIUM 9.6 mg/dL (8.4-10.2); CREATININE, SERUM 0.53 mg/dL (0.57-1.11); POTASSIUM 4.9 mmol/L (3.5-5.1); TOTAL PROTEIN 7.1 g/dL (6.5-8.1)
[2025-03-21 09:25] LABS: BAND NEUTROPHILS % (MANUAL) 3 %; EOSINOPHILS % (MANUAL) 1 % (0-7); LYMPHOCYTES % (MANUAL) 6 % (19-48); METAMYELOCYTES % (MANUAL) 3 % (0-0); MONOCYTES % (MANUAL) 10 % (3.4-9.0); NEUTROPHILS % (MANUAL) 77 % (40-74)
[2025-03-21 09:26] LABS: PLATELET ESTIMATE SLIGHTLY INCREASED; PLATELET MORPHOLOGY COMMENT FEW LARGE; TOXIC GRANULATION SLIGHT
[2025-03-21] MEDS ORDERED: ACETAMINOPHEN325 M1 PO (16:48)
[2025-03-21] MEDS ORDERED: BENZONATATE100 MG PO (16:48)
[2025-03-21] MEDS ORDERED: CEFUROXIME250 MG PO (16:48)
[2025-03-21] MEDS ORDERED: AZITHROMYCIN250 MG PO (16:48)
[2025-03-21] MEDS ORDERED: ULTRAM 50MG50 MG PO (16:52)
== END 2025-03-21 18:20 | disposition home or self-care (01) | DRG 871 ==
LOC: ER 14:00 → ERHOLD 16:25 → ICU 19:55 → MED/SURG2 03-20 17:35
PROVIDERS: ADMIT Internal Medicine; ATTEND Internal Medicine
DX: A41.9 Sepsis, unspecified organism (principal); J18.9 Pneumonia, unspecified organism; J96.00 Acute respiratory failure, unspecified whether with hypoxia or hypercapnia; J44.1 Chronic obstructive pulmonary disease with (acute) exacerbation; N39.0 Urinary tract infection, site not specified; E44.0 Moderate protein-calorie malnutrition; Z68.1 Body mass index [BMI] 19.9 or less, adult; J44.0 Chronic obstructive pulmonary disease with (acute) lower respiratory infection; Z59.00 Homelessness unspecified; R65.20 Severe sepsis without septic shock; E86.0 Dehydration; R62.7 Adult failure to thrive; E86.1 Hypovolemia; E87.6 Hypokalemia; J43.9 Emphysema, unspecified; Z99.81 Dependence on supplemental oxygen; R00.0 Tachycardia, unspecified; Z71.3 Dietary counseling and surveillance; Z87.891 Personal history of nicotine dependence; Z86.718 Personal history of other venous thrombosis and embolism; Z79.01 Long term (current) use of anticoagulants; Z79.02 Long term (current) use of antithrombotics/antiplatelets; Z79.899 Other long term (current) drug therapy; Z88.0 Allergy status to penicillin
CPT/HCPCS: 36415; 36568; 71045; 80048; 80053; 80307; 81001; 82550; 83605; 83735; 84100; 84443; 84484; 85025; 85610; 85730; 87040; 87086; 93005; 94640; 94664; 94760; 94799; 99252; 99285; J0696; J2405; J2919; J3480; J7030; J7050

== ENCOUNTER 2025-04-12 06:56 | Emergency (ER) | payer OTHER ==
[~2025-04-12] VITALS: Ht 157.5 cm; Wt 38.1 kg
[~2025-04-12 06:56] MED LIST changes: +ACETAMINOPHEN325 M1 PO; +BENZONATATE100 MG PO; +CEFUROXIME250 MG PO; +ULTRAM 50MG50 MG PO
[2025-04-12 07:10] VITALS: TEMP 98.6
[2025-04-12] MEDS ORDERED: METHYLPREDNISOLONE SOD SUCC 125 MG/2ML VIAL ONE (07:31)
[2025-04-12] MEDS: METHYLPREDNISOLONE SOD SUCC 125 MG/2ML VIAL IV ONE (07:38)
[2025-04-12] MEDS: ALBUTEROL/IPRATROPIUM 3 ML NEB NEB ONE ×2 (07:41→08:40)
[2025-04-12] MEDS: SODIUM CHLORIDE 0.9% 1000ML 1,000 ML IV STA (08:33)
[2025-04-12 08:34] VITALS: PULSE 85; RESP 20
[2025-04-12] MEDS ORDERED: VENTOLIN HFA18 GM INH (08:38)
[2025-04-12] MEDS ORDERED: ELIQUIS5 MG PO (08:38)
[2025-04-12] MEDS ORDERED: PREDNISONE50 MG PO (08:38)
[2025-04-12 08:40] VITALS: PULSE 74; RESP 20; O2SAT 93
[2025-04-12] MEDS ORDERED: AZITHROMYCIN250 MG PO (08:46)
== END 2025-04-12 10:02 | disposition home or self-care (01) ==
LOC: ER 07:05
DX: R06.02 Shortness of breath (principal); J44.1 Chronic obstructive pulmonary disease with (acute) exacerbation; Z76.0 Encounter for issue of repeat prescription; I10 Essential (primary) hypertension; Z87.19 Personal history of other diseases of the digestive system
CPT/HCPCS: 71045; 93005; 99284; J2919; J7030

== ENCOUNTER 2025-04-27 11:15 | Emergency (ER) | payer MEDICAID, OTHER ==
[~2025-04-27] VITALS: Ht 157.5 cm; Wt 40.8 kg
[~2025-04-27 11:15] MED LIST changes: +PREDNISONE50 MG PO
[2025-04-27 14:00] VITALS: PULSE 82; RESP 20; TEMP 98.2
[2025-04-27 14:41] VITALS: PULSE 82; RESP 18; O2SAT 96
[2025-04-27] MEDS: PREDNISONE 20 MG TAB PO ONE (14:54)
[2025-04-27 15:06] VITALS: PULSE 84; RESP 18; O2SAT 97
[2025-04-27] MEDS: ALBUTEROL/IPRATROPIUM 3 ML NEB NEB ONE (15:06)
[2025-04-27] MEDS ORDERED: PREDNISONE20 MG PO (16:15)
[2025-04-27] MEDS: ACETAMINOPHEN 325 MG TAB PO ONE (16:48)
== END 2025-04-27 17:29 | disposition home or self-care (01) ==
LOC: ER 14:20
DX: J44.9 Chronic obstructive pulmonary disease, unspecified (principal); I10 Essential (primary) hypertension; I74.09 Other arterial embolism and thrombosis of abdominal aorta; Z88.0 Allergy status to penicillin
CPT/HCPCS: 94640; 94799; 99284; J7512